=== PATIENT | male | born 1985 | race Caucasian/White ===

== ENCOUNTER 2019-06-29 08:54 | Emergency (ER) | payer BC, OTHER ==
[~2019-06-29] VITALS: Ht 167.6 cm; Wt 63.5 kg
[2019-06-29 09:36] VITALS: BP 90/58
[2019-06-29] MEDS ORDERED: IBUPROFEN 800 MG TAB PO ONE (09:45)
[2019-06-29] MEDS ORDERED: cefTRIAXone SOD 1,000 MG VL IM ONE (11:00)
== END 2019-06-29 11:24 | disposition home or self-care (01) ==
LOC: ER 08:54
DX: J18.1 Lobar pneumonia, unspecified organism (principal); F17.210 Nicotine dependence, cigarettes, uncomplicated
CPT/HCPCS: 71046; 96372; 99283; J0696

== ENCOUNTER 2020-07-07 23:22 | Emergency (ER) | payer BC ==
[~2020-07-07] VITALS: Ht 167.6 cm; Wt 63.5 kg
== END 2020-07-08 01:20 | disposition designated cancer center or children's hospital (05) ==
LOC: ER 23:22 → EDBD 23:22 → ER 07-08 01:20

== ENCOUNTER 2023-12-11 13:22 | Emergency (ER) | payer BC ==
[~2023-12-11] VITALS: Ht 167.6 cm; Wt 69.3 kg
[2023-12-11] MEDS ORDERED: TRAM50TA2 PO (15:20)
[2023-12-11] MEDS ORDERED: PRED20TA2 PO (15:20)
[2023-12-11] MEDS: KETOROLAC TROMETH 60MG/2ML VIAL IM ONE (15:26)
[2023-12-11 15:55] VITALS: BP 114/74; PULSE 68; RESP 16; TEMP 98.5; O2SAT 99
== END 2023-12-11 15:58 | disposition home or self-care (01) ==
LOC: ER 13:22
DX: G89.29 Other chronic pain (principal); M54.59 Other low back pain; M54.31 Sciatica, right side; F17.210 Nicotine dependence, cigarettes, uncomplicated; Z79.52 Long term (current) use of systemic steroids; Z79.1 Long term (current) use of non-steroidal anti-inflammatories (NSAID)
CPT/HCPCS: 96372; 99283; J1885

== ENCOUNTER 2024-06-03 12:44 | Emergency (ER) | payer BC ==
[~2024-06-03] VITALS: Ht 167.6 cm; Wt 62.2 kg
[~2024-06-03 12:44] MED LIST: PRED20TA2 PO; TRAM50TA2 PO
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
--- NOTE | 2024-06-03 14:13 | DVH ---
CHEST RADIOGRAPH Indication: cough, chest tube removal Technique: Single frontal view of the chest was obtained COMPARISON: None FINDINGS: Lines and Tubes: None Lungs: Hazy airspace opacities in the left mid and lower lung. Pleura: No effusion. No pneumothorax. Cardiomediastinal contours: Unremarkable Bones: Unremarkable IMPRESSION: Hazy airspace opacities in the left mid and lower lung. No appreciable pneumothorax.
[2024-06-03 14:31] LABS: Basophils # (auto) 0.1 10 ^3/uL (0-0.2); Eosinophils # (auto) 0.2 10 ^3/uL (0-0.8); Hemoglobin 10.8 g/dL (13.5-17.5); Lymphocytes # (auto) 2.2 10 ^3/uL (0.4-5.4); Mean Corpuscular Hemoglobin 28.1 pg (28.0-32.0); Monocytes # (auto) 0.7 10 ^3/uL (0-1.3); Neutrophils # (auto) 5.1 10 ^3/uL (1.6-8.6); Red Blood Cells 3.85 10^6/uL (4.5-5.90)
[2024-06-03 14:33] LABS: Basophils % (auto) 1.2 % (0.0-2.0); Eosinophils % (auto) 2.6 % (0.0-7.0); Hematocrit 32.3 % (41.0-53.0); Lymphocytes % (auto) 26.7 % (10.0-50.0); Mean Corpuscular Hgb Conc. 33.4 g/dL (32.0-36.0); Monocytes % (auto) 8.3 % (0.0-12.0); Neutrophils % (auto) 61.2 % (37.0-80.0); Platelet Count (auto) 549 10^3/uL (140-450); Red Cell Distribution Width 16.1 % (11.8-14.3); White Blood Cell 8.4 10^3/uL (4.4-10.8)
[2024-06-03 14:46] LABS: Albumin 4.1 g/dL (3.2-4.8); Anion Gap 7 (5-15); BUN/Creatinine Ratio 9.9 (10.0-20.0); Bilirubin, Total 0.5 mg/dL (0.2-1.0); Blood Urea Nitrogen 14 mg/dL (9-23); Calcium 9.9 mg/dL (8.7-10.4); Carbon Dioxide 28 mmol/L (20-31); Chloride 101 mmol/L (98-107); Glucose 95 mg/dL (74-106); Potassium 4.3 mmol/L (3.5-5.1); Sodium 136 mmol/L (136-145)
[2024-06-03 14:53] LABS: Alanine Aminotransferase 177 U/L (7-40); Alkaline Phosphatase 131 U/L (46-116); Aspartate Aminotransferase 77 U/L (13-40)
[2024-06-03 14:54] LABS: Total Protein 8.3 g/dL (5.7-8.2)
[2024-06-03 16:13] VITALS: PULSE 66; RESP 20; O2SAT 97
--- NOTE | 2024-06-03 16:22 | DVH ---
EXAM: CT HEAD WITHOUT CONTRAST HISTORY: altered COMPARISON: None TECHNIQUE: Axial images were obtained and reformatted in coronal and sagittal planes. All CT scans at this medical facility are performed using dose modulation techniques as appropriate t o a performed exam including the following: Automated exposure control was utilized; adjustment of th e MA and/or KV according to patient size; and use of iterative reconstruction technique. CT Dose: CTDI volume is 60.87 mGy. Dose-length product is 1077.5 mGy*cm FINDINGS: Supratentorial Region: No evidence for large acute territorial ischemia. No intracranial hemorrhage is noted. Posterior Fossa: No acute abnormality. Brainstem: Unremarkable. Sellar/Suprasellar Region: Unremarkable. Ventricles, Cisterns, Sulci: Age-appropriate. Orbits: Unremarkable. Paranasal Sinuses: Unremarkable. Mastoid Air Cells: Unremarkable. Vasculature: Unremarkable. Bones/Soft Tissues: No acute abnormality. Other: None. IMPRESSION: 1. No acute intracranial process.
[2024-06-03] MEDS ORDERED: CEPH500C PO (17:12)
[2024-06-03 17:34] VITALS: BP 94/56; PULSE 74; RESP 16; TEMP 97.9; O2SAT 96
== END 2024-06-03 17:35 | disposition home or self-care (01) ==
LOC: ER 12:44
DX: S06.9XAA Unspecified intracranial injury with loss of consciousness status unknown, initial encounter (principal); L03.313 Cellulitis of chest wall; F17.210 Nicotine dependence, cigarettes, uncomplicated; V89.2XXA Person injured in unspecified motor-vehicle accident, traffic, initial encounter; Y93.I9 Activity, other involving external motion; Y92.488 Other paved roadways as the place of occurrence of the external cause; Y99.8 Other external cause status
CPT/HCPCS: 36415; 70450; 71045; 80053; 83605; 85025; 87077; 87186; 87205

== ENCOUNTER 2025-02-03 14:34 | Outpatient (CLI) | payer BC ==
[~2025-02-03 14:34] MED LIST changes: +CEPH500C PO
[2025-02-03 15:14] LABS: Hemoglobin 18.3 g/dL (13.5-17.5); Mean Corpuscular Volume 86.8 fL (80.0-100.0); Nucleated Red Blood Cells % 0.1 %
[2025-02-03 15:16] LABS: Hematocrit 52.8 % (41.0-53.0); Mean Corpuscular Hemoglobin 30.0 pg (28.0-32.0)
[2025-02-03 15:25] LABS: Alanine Aminotransferase 31 U/L (7-40); Alkaline Phosphatase 59 U/L (46-116); Anion Gap 6 (5-15); BUN/Creatinine Ratio 13.9 (10.0-20.0); Blood Urea Nitrogen 14 mg/dL (9-23); Calcium 9.6 mg/dL (8.7-10.4); Carbon Dioxide 25 mmol/L (20-31); Glucose 90 mg/dL (74-106); Potassium 3.8 mmol/L (3.5-5.1); Sodium 140 mmol/L (136-145); Total Protein 7.6 g/dL (5.7-8.2); Triglycerides 74 mg/dL (< 150)
[2025-02-03 15:26] LABS: Bilirubin, Total 0.6 mg/dL (0.2-1.0); Cholesterol 169 mg/dL (< 200); HDL Cholesterol 49 mg/dL (40-59)
[2025-02-03 15:32] LABS: Albumin 4.8 g/dL (3.2-4.8); Chloride 109 mmol/L (98-107)
[2025-02-03 16:16] LABS: Hepatitis A Total Antibody Negative (Negative); Hepatitis B Surface Antigen Negative (Negative); Hepatitis C Antibody Negative (Negative)
== END 2025-02-03 17:00 | disposition home or self-care (01) ==
LOC: LAB 14:34
PROVIDERS: ATTEND Licensed Practical Nurse
DX: E55.9 Vitamin D deficiency, unspecified (principal); Z13.1 Encounter for screening for diabetes mellitus; Z13.29 Encounter for screening for other suspected endocrine disorder; Z00.01 Encounter for general adult medical examination with abnormal findings; Z79.899 Other long term (current) drug therapy
CPT/HCPCS: 36415; 80053; 80061; 82306; 82728; 83036; 84443; 85025; 86704; 86706; 86708; 86803; 87340